=== PATIENT | male | born 1975 | race Caucasian/White ===

== ENCOUNTER 2021-05-08 16:11 | Emergency (ER) | payer OTHER ==
--- NOTE | 2021-05-08 16:45 | EDM.PDOC ---
ED HPI GENERAL MEDICAL PROBLEM - General Chief Complaint: Genitourinary Problem Stated Complaint: BLOOD IN URINE Time Seen by Provider: 05/08/21 16:24 Source of Information: Reports: Patient History Limitations: Reports: No Limitations - History of Present Illness INITIAL COMMENTS - FREE TEXT/NARRATIVE: Is a 45-year-old male presents today for blood in his urine. Patient states that he has sex with his earlier and when he went to the bathroom there was bright red blood in there. It was not painful or difficult to get out. He also noticed he has some brown urine a few days ago as well but since then his urine is returned to normal colors. Denies any nausea vomiting fever chills abdominal pain weakness or fatigue. Denies using anticoagulations. - Related Data Allergies Allergy/AdvReac Type Severity Reaction Status Date / Time No Known Allergies Allergy Verified 05/08/21 16:27 Home Meds: Home Meds Empagliflozin [Jardiance] 25 mg PO DAILY 05/08/21 [History] Losartan Potassium 50 mg PO DAILY 05/08/21 [History] atorvaSTATin [Lipitor] 20 mg PO BEDTIME 05/08/21 [History] metFORMIN [Glucophage] 500 mg PO BID 05/08/21 [History] Past Medical History - Past Health History Medical/Surgical History: Denies Medical/Surgical History Other Dermatologic History: skin graphs UE due to acident Social & Family History - Family History Family Medical History: No Pertinent Family History ED ROS GENERAL - Review of Systems Review Of Systems: See Below Constitutional: Reports: No Symptoms HEENT: Reports: No Symptoms Respiratory: Reports: No Symptoms Cardiovascular: Reports: No Symptoms Endocrine: Reports: No Symptoms GI/Abdominal: Reports: No Symptoms : Reports: Hematuria Musculoskeletal: Reports: No Symptoms Skin: Reports: No Symptoms Neurological: Reports: No Symptoms Psychiatric: Reports: No Symptoms Hematologic/Lymphatic: Reports: No Symptoms Immunologic: Reports: No Symptoms ED EXAM, RENAL/ - Physical Exam Exam: See Below Exam Limited By: No Limitations General Appearance: Alert, WD/WN, No Apparent Distress Head: Atraumatic Neck: Normal Inspection Respiratory/Chest: No Respiratory Distress, Lungs Clear, Normal Breath Sounds Cardiovascular: Normal Peripheral Pulses, Regular Rate, Rhythm GI/Abdominal: Normal Bowel Sounds, Soft, Non-Tender Back Exam: No: CVA Tenderness (L), CVA Tenderness (R) Extremities: Normal Inspection, Normal Range of Motion Neurological: Alert, Oriented, Normal Cognition, Normal Gait Course - Vital Signs Last Recorded V/S: Last Vital Signs Temp 97.4 F 05/08/21 16:28 Pulse 84 05/08/21 16:28 Resp 16 05/08/21 16:28 BP 134/92 H 05/08/21 16:28 Pulse Ox 99 05/08/21 16:28 - Orders/Labs/Meds Labs: Laboratory Tests 05/08/21 Range/Units 16:46 Urine Color YELLOW Urine Appearance HAZY Urine pH 6.0 (5.0-8.0) Ur Specific [place] 1.025 (1.001-1.035) Urine Protein NEGATIVE (NEGATIVE) mg/dL Urine Glucose (UA) >=1000 (NEGATIVE) mg/dL Urine Ketones NEGATIVE (NEGATIVE) mg/dL Urine Occult Blood LARGE H (NEGATIVE) Urine Nitrite NEGATIVE (NEGATIVE) Urine Bilirubin NEGATIVE (NEGATIVE) Urine Urobilinogen 0.2 (<2.0) EU/dL Ur Leukocyte Esterase NEGATIVE (NEGATIVE) Urine RBC 10-15 (0-2/HPF) Urine WBC 0-2 (0-5/HPF) Ur Epithelial Cells OCCASIONAL (NONE-FEW) Urine Bacteria FEW (NEGATIVE) Urine Mucus LIGHT (NONE-MOD) - Re-Assessments/Exams Free Text/Narrative Re-Assessment/Exam: 05/08/21 17:55 Patient urine shows a large amount of blood which patient saw earlier today. Again patient did not want to do any labs to check his creatinine or hemoglobin level do a CT scan with for any mass or cause of bleeding. Patient understands this and will follow up with PMD. Departure - Departure Time of Disposition: 17:55 Disposition: Home, Self-Care 01 Condition: Good Clinical Impression: Hematuria - Discharge Information *PRESCRIPTION DRUG MONITORING PROGRAM REVIEWED*: Not Applicable *COPY OF PRESCRIPTION DRUG MONITORING REPORT IN PATIENT SHANEL: Not Applicable Instructions: Hematuria, Adult Referrals: PCP,None [Primary Care Provider] - Forms: ED Department Discharge Additional Instructions: You were seen today for blood in your urine. We did a urinalysis that shows large amount of blood but no bacteria where the blood was coming from. We will like to do more work-up with CAT scans labs but you do not want to do that at this time. We recommend you follow-up with your primary care physician for further work-up and care of this blood in your urine. The following information is given to patients seen in the emergency department who are being discharged to home. This information is to outline your options for follow-up care. We provide all patients seen in our emergency department with a follow-up referral. The need for follow-up, as well as the timing and circumstances, are variable depending upon the specifics of your emergency department visit. If you don't have a primary care physician on staff, we will provide you with a referral. We always advise you to contact your personal physician following an emergency department visit to inform them of the circumstance of the visit and for follow-up with them and/or the need for any referrals to a consulting specialist. The emergency department will also refer you to a specialist when appropriate. This referral assures that you have the opportunity for follow-up care with a specialist. All of these measure are taken in an effort to provide you with optimal care, which includes your follow-up. Under all circumstances we always encourage you to contact your private physician who remains a resource for coordinating your care. When calling for follow-up care, please make the office aware that this follow-up is from your recent emergency room visit. If for any reason you are refused follow-up, please contact the [facility] at and asked to speak to the emergency department charge nurse. Please follow up with your primary care physician. If you do not have a primary care physician, see below: [facility] [address] [place] [id number] [facility] [address] [place] [id number] Sepsis Event Note (ED) - Evaluation Sepsis Screening Result: No Definite Risk - Focused Exam Vital Signs: Vital Signs Temp Pulse Resp BP Pulse Ox 05/08/21 16:28 97.4 F 84 16 134/92 H 99 - Assessment/Plan Plan: Patient is a 45-year-old male who presents today for blood in his urine. The blood started early this morning after having intercourse with his . He also has some brown urine a few days ago. We tried to order labs CT scan to do a work-up on the patient however patient refused states he is wants a UA we spoke to patient multiple times about the causes of may not find out where the blood coming from or missing something serious he understands risk states that he follows up with Dr. Nelson and will prefer to just do the urinalysis today.
[2021-05-08 18:12] VITALS: BP 119/71; PULSE 80
== END 2021-05-08 18:12 | disposition home or self-care (01) ==
LOC: MW.ED 16:11
DX: R31.9 Hematuria, unspecified (principal)
CPT/HCPCS: 81001; 99283

== ENCOUNTER 2022-05-08 05:07 | Emergency (ER) | payer BC ==
[2022-05-08 05:28] VITALS: BP 146/100; PULSE 99
== END 2022-05-08 05:39 | disposition home or self-care (01) ==
LOC: MW.ED 05:07
DX: M79.662 Pain in left lower leg (principal); E78.00 Pure hypercholesterolemia, unspecified; I10 Essential (primary) hypertension; E11.9 Type 2 diabetes mellitus without complications; Z79.84 Long term (current) use of oral hypoglycemic drugs; Z79.899 Other long term (current) drug therapy
CPT/HCPCS: 99283

== ENCOUNTER 2024-03-19 16:52 | Emergency (ER) | payer BC ==
[2024-03-19] MEDS: Tetracaine HCl/PF 0.5% 4 ML Bottle EYEBOTH ONE (17:05)
[2024-03-19] MEDS: Erythromycin Base 0.5% Ophth Oint 1 GM Tube EYEBOTH ONE (17:33)
[2024-03-19 17:54] VITALS: PULSE 87
== END 2024-03-19 17:53 | disposition home or self-care (01) ==
LOC: MW.ED 16:52
DX: S05.01XA Injury of conjunctiva and corneal abrasion without foreign body, right eye, initial encounter (principal); I10 Essential (primary) hypertension; E78.00 Pure hypercholesterolemia, unspecified; E11.9 Type 2 diabetes mellitus without complications; F17.210 Nicotine dependence, cigarettes, uncomplicated; Z79.899 Other long term (current) drug therapy; Z79.84 Long term (current) use of oral hypoglycemic drugs; X58.XXXA Exposure to other specified factors, initial encounter
CPT/HCPCS: 99283; A9270; J3490

== ENCOUNTER 2024-03-21 14:08 | Emergency (ER) | payer BC ==
[2024-03-21 15:16] VITALS: BP 144/86; PULSE 77
[2024-03-21] MEDS: Tetracaine HCl/PF 0.5% 4 ML Bottle EYERT STA (15:24)
== END 2024-03-21 15:57 | disposition home or self-care (01) ==
LOC: MW.ED 14:08
DX: S05.01XD Injury of conjunctiva and corneal abrasion without foreign body, right eye, subsequent encounter (principal); I10 Essential (primary) hypertension; E78.00 Pure hypercholesterolemia, unspecified; E11.9 Type 2 diabetes mellitus without complications; Z79.899 Other long term (current) drug therapy; Z79.84 Long term (current) use of oral hypoglycemic drugs; X58.XXXD Exposure to other specified factors, subsequent encounter
CPT/HCPCS: 99283; J3490